=== PATIENT | female | born 1955 | race Caucasian/White ===

== ENCOUNTER 2023-06-18 18:33 | Inpatient (IN) | payer MEDICARE ==
[~2023-06-18] VITALS: Ht 154.9 cm; Wt 54.4 kg
[2023-06-18] MEDS ORDERED: IPRATROPIUM NEB FS 0.5 MG/2.5 ML AMPUL.NEB NEB ONE (19:00)
[2023-06-18] MEDS ORDERED: methylPREDNISolone SOD SUCC 125 MG/2ML VIAL IV ONE (19:00)
[2023-06-18] MEDS ORDERED: Magnesium 1GM/D5W 100ML PREMIX 200 ML IV ONE ×2 (19:00→19:15)
[2023-06-18] MEDS ORDERED: ALBUTEROL FS 2.5 MG/3 ML VIAL.NEB CONTNEB ONE (19:00)
[2023-06-18] MEDS ORDERED: methylPREDNISolone SOD SUCC 125 MG/2ML VIAL ONE (19:10)
[2023-06-18 19:15] LABS: BASOPHILS # (AUTO) 0.1 K/uL (0.0-0.2); BASOPHILS % (AUTO) 1.5 % (0.0-2.0); EOSINOPHILS # (AUTO) 0.3 K/uL (0.0-0.7); EOSINOPHILS % (AUTO) 3.9 % (0.0-6.0); HEMATOCRIT 31 % (33-45); HEMOGLOBIN 9.6 g/dL (11.5-14.8); LYMPHOCYTES # (AUTO) 0.7 K/uL (0.8-4.8); LYMPHOCYTES % (AUTO) 8.3 % (20.0-44.0); MEAN CORPUSCULAR HEMOGLOBIN 29 PG (26.0-33.0); MEAN CORPUSCULAR HGB CONC 31 g/dl (31.0-36.0); MEAN CORPUSCULAR VOLUME 93 fL (82-100); MONOCYTES # (AUTO) 0.6 K/uL (0.1-1.30); MONOCYTES % (AUTO) 7.9 % (2.0-12.0); NEUTROPHILS # (AUTO) 6.2 K/uL (1.8-8.9); NEUTROPHILS % (AUTO) 78.4 % (43.0-81.0); PLATELET COUNT (AUTO) 191 K/uL (150-450); RED BLOOD CELL COUNT(AUTO) 3.27 MIL/uL (4.0-5.2); RED CELL DISTRIBUTION WIDTH 14.6 % (11.5-15.0); WHITE BLOOD COUNT (AUTO) 7.9 K/uL (4.3-11.0)
[2023-06-18 19:26] LABS: CALCIUM, SERUM 8.7 mg/dL (8.5-10.1); CHLORIDE 98 mmol/L (98-107); CREATININE 0.6 mg/dL (0.6-1.3); GLUCOSE 112 mg/dL (74-106); POTASSIUM 4.4 mmol/L (3.5-5.1); SODIUM SERUM 139 mmol/L (136-145); UREA NITROGEN, BLOOD 16 mg/dL (7-18)
[2023-06-18 19:31] LABS: ALANINE AMINOTRANSFERASE 17 U/L (12-78); ALKALINE PHOSPHATASE 78 U/L (46-116); ASPARTATE AMINOTRANSFERASE 14 U/L (15-37); BILIRUBIN,DIRECT 0.1 mg/dL (0.0-0.2); BILIRUBIN,TOTAL 0.4 mg/dL (0.2-1.0); TOTAL PROTEIN, SERUM 6.3 g/dL (6.4-8.2)
[2023-06-18 19:33] LABS: CARBON DIOXIDE 40 mmol/L (21-32)
[2023-06-18] MEDS ORDERED: IPRATROPIUM NEB FS 0.5 MG/2.5 ML AMPUL.NEB ONE (19:37)
[2023-06-18] MEDS ORDERED: ALBUTEROL FS 2.5 MG/3 ML VIAL.NEB ONE (19:37)
[2023-06-18 20:07] VITALS: O2SAT 96
[2023-06-18] MEDS ORDERED: ONDANSETRON HCL/PF 4 MG/2 ML VIAL IVP PRN (21:00)
[2023-06-18] MEDS ORDERED: ALBUTEROL FS 2.5 MG/0.5 ML VIAL.NEB NEB PRN (21:00)
[2023-06-18] MEDS ORDERED: ACETAMINOPHEN 325 MG TABLET PO PRN (21:00)
[2023-06-18 21:17] VITALS: O2SAT 100
[2023-06-18 21:30] VITALS: BP 109/60; TEMP 98.2; O2SAT 92
[2023-06-18 21:49] LABS: ABG BASE EXCESS 9.4 mmol/L; ABG OXYGEN SATURATION 98.4 % (92.0-98.5); ABG PH 7.292 (7.350-7.450); ABG PO2 140.9 mmHg (75.0-100.0); ABG TOTAL HEMOGLOBIN 10.6 G/dL (12.0-16.0); COHb 0.1 % (0.5-1.5); MetHb 0.3 % (0.0-1.5); SITE, ABG Right Radial
[2023-06-18] MEDS: HEPARIN SODIUM, PORCINE 5000 UNITS/1 ML VIAL SQ SCH (23:34)
[2023-06-19] VITALS (12 sets, daily range): BP systolic 118–142; BP diastolic 61–89; TEMP 94–98.2; O2SAT 94–100
[2023-06-19] MEDS ORDERED: IPRATROPIUM/ALBUTEROL INHALER IH SCH
[2023-06-19] MEDS: ALBUTEROL FS 2.5 MG/3 ML VIAL.NEB NEB SCH ×4 (01:53→19:52)
[2023-06-19] MEDS: IPRATROPIUM NEB FS 0.5 MG/2.5 ML AMPUL.NEB NEB SCH ×4 (01:53→19:52)
[2023-06-19] MEDS: methylPREDNISolone SOD SUCC 40 MG/ML VIAL IV SCH ×4 (03:57→21:34)
[2023-06-19] MEDS: HYDROCODONE/APAP 5/325MG TABLET PO PRN ×3 (05:50→15:59)
[2023-06-19 07:04] LABS: HEMATOCRIT 30 % (33-45); HEMOGLOBIN 9.6 g/dL (11.5-14.8); LYMPHOCYTES # (AUTO) 0.1 K/uL (0.8-4.8); LYMPHOCYTES % (AUTO) 1.8 % (20.0-44.0); MEAN CORPUSCULAR HEMOGLOBIN 29 PG (26.0-33.0); MEAN CORPUSCULAR HGB CONC 32 g/dl (31.0-36.0); MEAN CORPUSCULAR VOLUME 92 fL (82-100); MONOCYTES % (AUTO) 0.6 % (2.0-12.0); NEUTROPHILS % (AUTO) 97.6 % (43.0-81.0); PLATELET COUNT (AUTO) 193 K/uL (150-450); RED BLOOD CELL COUNT(AUTO) 3.26 MIL/uL (4.0-5.2); RED CELL DISTRIBUTION WIDTH 14.5 % (11.5-15.0); WHITE BLOOD COUNT (AUTO) 6.2 K/uL (4.3-11.0)
[2023-06-19 07:22] LABS: ALBUMIN 2.9 g/dL (3.4-5.0); BILIRUBIN,TOTAL 0.3 mg/dL (0.2-1.0); CREATININE 0.6 mg/dL (0.6-1.3); MAGNESIUM 1.8 mg/dL (1.8-2.4); POTASSIUM 4.5 mmol/L (3.5-5.1); TOTAL PROTEIN, SERUM 6.4 g/dL (6.4-8.2)
[2023-06-19] MEDS ORDERED: MONT10TA22 PO (08:41)
[2023-06-19] MEDS ORDERED: CYAN10006 IJ (08:41)
[2023-06-19] MEDS ORDERED: LORA2TAB95 PO (08:41)
[2023-06-19] MEDS ORDERED: ZOLP10TA2 PO (08:41)
[2023-06-19] MEDS ORDERED: ALBU18HF2 IH (08:41)
[2023-06-19] MEDS ORDERED: OXYC10TA49 PO (08:41)
[2023-06-19] MEDS ORDERED: BUDE10.2 IH (08:41)
[2023-06-19] MEDS ORDERED: AMLO5TAB4 PO (08:41)
[2023-06-19] MEDS ORDERED: FLUO40CA8 PO (08:41)
[2023-06-19] MEDS: HEPARIN SODIUM, PORCINE 5000 UNITS/1 ML VIAL SQ SCH ×2 (09:11→21:36)
[2023-06-19] MEDS ORDERED: LORAZEPAM 1 MG TABLET PO PRN (11:00)
[2023-06-19] MEDS: NICOTINE PATCH (14MG) 14 MG PATCH.TD24 TD SCH (14:22)
[2023-06-19] MEDS ORDERED: K PHOS NEUTRAL 250 MG TABLET PO ONE (16:00)
[2023-06-19] MEDS: ENSURE ENLIVE CHOC 237 ML CAN PO SCH (17:00)
[2023-06-19] MEDS ORDERED: BUDESONIDE RESPULE INH 0.5 MG/2 ML AMPUL.NEB NEB SCH (19:30)
[2023-06-19] MEDS: BUDESONIDE RESPULE INH 0.5 MG/2 ML AMPUL.NEB NEB SCH (19:52)
[2023-06-19] MEDS: MONTELUKAST SODIUM (10MG) 10 MG TABLET PO SCH (21:34)
[2023-06-19] MEDS: AMLODIPINE BESYLATE 5 MG TABLET PO SCH (21:34)
[2023-06-19] MEDS: FLUOXETINE HCL 20 MG CAPSULE PO SCH (21:34)
[2023-06-19] MEDS: MORPHINE SULFATE INJ 2 MG/ML DISP.SYRIN IV PRN (21:48)
[2023-06-19] MEDS: ZOLPIDEM TARTRATE 10 MG TABLET PO PRN (23:16)
[2023-06-20] VITALS (12 sets, daily range): BP systolic 126–151; BP diastolic 73–94; TEMP 98–99; O2SAT 95–100
[2023-06-20] MEDS: ALBUTEROL FS 2.5 MG/3 ML VIAL.NEB NEB SCH ×4 (00:34→20:17)
[2023-06-20] MEDS: IPRATROPIUM NEB FS 0.5 MG/2.5 ML AMPUL.NEB NEB SCH ×4 (00:34→20:17)
[2023-06-20] MEDS: methylPREDNISolone SOD SUCC 40 MG/ML VIAL IV SCH ×2 (05:14→16:20)
[2023-06-20] MEDS: ENSURE ENLIVE CHOC 237 ML CAN PO SCH ×2 (08:00→17:00)
[2023-06-20] MEDS: BUDESONIDE RESPULE INH 0.5 MG/2 ML AMPUL.NEB NEB SCH ×2 (08:31→20:17)
[2023-06-20] MEDS: HEPARIN SODIUM, PORCINE 5000 UNITS/1 ML VIAL SQ SCH ×2 (09:35→21:23)
[2023-06-20] MEDS: NICOTINE PATCH (14MG) 14 MG PATCH.TD24 TD SCH (09:35)
[2023-06-20] MEDS: MORPHINE SULFATE INJ 2 MG/ML DISP.SYRIN IV PRN ×3 (09:36→21:21)
[2023-06-20] MEDS: FLUOXETINE HCL 20 MG CAPSULE PO SCH (21:20)
[2023-06-20] MEDS: MONTELUKAST SODIUM (10MG) 10 MG TABLET PO SCH (21:20)
[2023-06-20] MEDS: AMLODIPINE BESYLATE 5 MG TABLET PO SCH (21:21)
[2023-06-20] MEDS: ZOLPIDEM TARTRATE 10 MG TABLET PO PRN (23:44)
[2023-06-21] VITALS (12 sets, daily range): BP systolic 127–155; BP diastolic 75–99; TEMP 97.3–99; O2SAT 96–100
[2023-06-21] MEDS: IPRATROPIUM NEB FS 0.5 MG/2.5 ML AMPUL.NEB NEB SCH ×4 (01:07→20:16)
[2023-06-21] MEDS: ALBUTEROL FS 2.5 MG/3 ML VIAL.NEB NEB SCH ×4 (01:08→20:16)
[2023-06-21] MEDS: MORPHINE SULFATE INJ 2 MG/ML DISP.SYRIN IV PRN ×5 (05:51→22:09)
[2023-06-21] MEDS: BUDESONIDE RESPULE INH 0.5 MG/2 ML AMPUL.NEB NEB SCH ×2 (07:30→20:16)
[2023-06-21] MEDS: ENSURE ENLIVE CHOC 237 ML CAN PO SCH ×2 (08:00→17:00)
[2023-06-21] MEDS: methylPREDNISolone SOD SUCC 40 MG/ML VIAL IV SCH ×2 (08:53→17:30)
[2023-06-21] MEDS: NICOTINE PATCH (14MG) 14 MG PATCH.TD24 TD SCH (08:54)
[2023-06-21] MEDS: HEPARIN SODIUM, PORCINE 5000 UNITS/1 ML VIAL SQ SCH ×2 (08:56→21:53)
[2023-06-21] MEDS: FLUOXETINE HCL 20 MG CAPSULE PO SCH (22:08)
[2023-06-21] MEDS: MONTELUKAST SODIUM (10MG) 10 MG TABLET PO SCH (22:08)
[2023-06-21] MEDS: AMLODIPINE BESYLATE 5 MG TABLET PO SCH (23:12)
[2023-06-21] MEDS: ZOLPIDEM TARTRATE 10 MG TABLET PO PRN (23:13)
[2023-06-22] VITALS: BP 142/89; TEMP 97.8; O2SAT 97
[2023-06-22] MEDS: IPRATROPIUM NEB FS 0.5 MG/2.5 ML AMPUL.NEB NEB SCH ×3 (01:30→13:03)
[2023-06-22] MEDS: ALBUTEROL FS 2.5 MG/3 ML VIAL.NEB NEB SCH ×3 (01:30→13:03)
[2023-06-22] MEDS: MORPHINE SULFATE INJ 2 MG/ML DISP.SYRIN IV PRN ×2 (02:57→08:28)
[2023-06-22 04:00] VITALS: BP 141/78; TEMP 97.9; O2SAT 97
[2023-06-22] MEDS: HYDROCODONE/APAP 5/325MG TABLET PO PRN ×2 (06:26→10:56)
[2023-06-22] MEDS: BUDESONIDE RESPULE INH 0.5 MG/2 ML AMPUL.NEB NEB SCH (07:30)
[2023-06-22 07:48] VITALS: O2SAT 99
[2023-06-22 08:00] VITALS: BP 158/97; TEMP 98.2; O2SAT 98
[2023-06-22] MEDS: ENSURE ENLIVE CHOC 237 ML CAN PO SCH (08:00)
[2023-06-22] MEDS: methylPREDNISolone SOD SUCC 40 MG/ML VIAL IV SCH (08:26)
[2023-06-22] MEDS: NICOTINE PATCH (14MG) 14 MG PATCH.TD24 TD SCH (08:28)
[2023-06-22] MEDS: HEPARIN SODIUM, PORCINE 5000 UNITS/1 ML VIAL SQ SCH (08:28)
[2023-06-22 11:57] VITALS: BP 152/83; TEMP 98.6; O2SAT 97
[2023-06-22 13:03] VITALS: O2SAT 98
== END 2023-06-22 16:00 | DRG 190 ==
LOC: ER 18:48 → TELE 20:56 → MED 06-22 12:06
PROVIDERS: ADMIT Internal Medicine
DX: J44.1 Chronic obstructive pulmonary disease with (acute) exacerbation (principal); J96.21 Acute and chronic respiratory failure with hypoxia; J96.22 Acute and chronic respiratory failure with hypercapnia; E44.0 Moderate protein-calorie malnutrition; Z68.1 Body mass index [BMI] 19.9 or less, adult; D64.9 Anemia, unspecified; E88.09 Other disorders of plasma-protein metabolism, not elsewhere classified; I10 Essential (primary) hypertension; F17.200 Nicotine dependence, unspecified, uncomplicated; F17.290 Nicotine dependence, other tobacco product, uncomplicated; M19.90 Unspecified osteoarthritis, unspecified site; F41.9 Anxiety disorder, unspecified; F32.A Depression, unspecified; G89.4 Chronic pain syndrome; Z79.51 Long term (current) use of inhaled steroids; Z79.899 Other long term (current) drug therapy
CPT/HCPCS: 36415; 36600; 71045-TC; 73564-TC; 80048-TC; 80053-TC; 80076-TC; 82803-TC; 83735-TC; 84100-TC; 84484-TC; 85025-TC; 85378-TC; 87081-TC; 94799-TC; 97110-TC; 97116-TC; 97530-TC; G0378; J1644; J2270; J2920; J2930; J3475

== ENCOUNTER 2023-12-06 00:35 | Inpatient (IN) | payer MEDICARE ==
[~2023-12-06] VITALS: Ht 154.9 cm; Wt 43.5 kg
[2023-12-06] VITALS (7 sets, daily range): TEMP 98.2; O2SAT 96–100
[~2023-12-06 00:35] MED LIST: ALBU18HF2 IH; AMLO5TAB4 PO; BUDE10.2 IH; CYAN10006 IJ; FLUO40CA8 PO; LORA2TAB95 PO; MONT10TA22 PO; OXYC10TA49 PO; ZOLP10TA2 PO
[2023-12-06] MEDS: IV NS 0.9% 1,000 ML BAG IV ONE (01:30)
[2023-12-06 01:36] LABS: BASOPHILS % (AUTO) 0.2 % (0.0-2.0); EOSINOPHILS # (AUTO) 0.4 K/uL (0.0-0.7); EOSINOPHILS % (AUTO) 2.5 % (0.0-6.0); HEMATOCRIT 33 % (33-45); HEMOGLOBIN 10.2 g/dL (11.5-14.8); LYMPHOCYTES # (AUTO) 0.9 K/uL (0.8-4.8); LYMPHOCYTES % (AUTO) 6.5 % (20.0-44.0); MEAN CORPUSCULAR HEMOGLOBIN 29 PG (26.0-33.0); MEAN CORPUSCULAR HGB CONC 31 g/dl (31.0-36.0); MEAN CORPUSCULAR VOLUME 95 fL (82-100); MONOCYTES # (AUTO) 1.3 K/uL (0.1-1.30); MONOCYTES % (AUTO) 9.4 % (2.0-12.0); NEUTROPHILS # (AUTO) 11.4 K/uL (1.8-8.9); NEUTROPHILS % (AUTO) 81.4 % (43.0-81.0); PLATELET COUNT (AUTO) 261 K/uL (150-450); RED BLOOD CELL COUNT(AUTO) 3.48 MIL/uL (4.0-5.2); RED CELL DISTRIBUTION WIDTH 15.7 % (11.5-15.0)
[2023-12-06 01:45] LABS: CALCIUM, SERUM 8.4 mg/dL (8.5-10.1); CHLORIDE 102 mmol/L (98-107); CREATININE 0.9 mg/dL (0.6-1.3); GLUCOSE 134 mg/dL (74-106); POTASSIUM 5.3 mmol/L (3.5-5.1); SODIUM SERUM 143 mmol/L (136-145); UREA NITROGEN, BLOOD 20 mg/dL (7-18)
[2023-12-06 01:54] LABS: CARBON DIOXIDE 45 mmol/L (21-32)
[2023-12-06 02:01] LABS: THYROID STIMULATING HORMONE 1.141 uIU/mL (0.358-3.74)
[2023-12-06 02:02] LABS: INR 0.99 (0.91-1.10); PARTIAL THROMBOPLASTIN TIME 22.8 SEC (24.3-34.3); PROTHROMBIN TIME 10.5 SECS (9.2-11.1)
[2023-12-06 02:10] LABS: LACTIC ACID 1.5 mmol/L (0.4-2.0)
[2023-12-06] MEDS ORDERED: ASPIRIN EC 81 MG TABLET.DR PO ONE (02:36)
[2023-12-06] MEDS: ASPIRIN 81 MG TAB.CHEW PO ONE (02:39)
[2023-12-06 02:45] LABS: APPEARANCE,URINE CLEAR (CLEAR); BILIRUBIN,URINE NEGATIVE (NEGATIVE); BLOOD, URINE NEGATIVE Ery/uL (NEGATIVE); COLOR,URINE YELLOW (YELLOW); KETONES,URINE NEGATIVE (NEGATIVE); LEUKOCYTE ESTERASE ,URINE NEGATIVE (NEGATIVE); NITRITE, URINE NEGATIVE (NEGATIVE); PROTEIN,URINE 1+ mg/dl (NEGATIVE); UGLUCOSE NEGATIVE (NEGATIVE); UROBILINOGEN,URINE 0.2 EU/dL (0.2)
[2023-12-06 02:59] LABS: ALBUMIN 2.6 g/dL (3.4-5.0); BILIRUBIN,DIRECT 0.1 mg/dL (0.0-0.2); BILIRUBIN,TOTAL 0.2 mg/dL (0.2-1.0); TOTAL PROTEIN, SERUM 5.8 g/dL (6.4-8.2)
[2023-12-06 03:23] LABS: ADD URINE CULTURE NO; BACTERIA,URINE None seen /HPF (None Seen); MUCUS,URINE Few /LPF (None Seen); RBC,URINE NONE SEEN /HPF (0-2); WBC,URINE NONE SEEN /HPF (0-3)
[2023-12-06] MEDS: methylPREDNISolone SOD SUCC 125 MG/2ML VIAL IV ONE (06:45)
[2023-12-06] MEDS ORDERED: CEFTRIAXONE 1GM BAG (ER ONLY) 50 ML IV ONE (06:46)
[2023-12-06] MEDS ORDERED: IPRATROPIUM NEB FS 0.5 MG/2.5 ML AMPUL.NEB ONE (06:49)
[2023-12-06] MEDS ORDERED: ALBUTEROL FS 2.5 MG/3 ML VIAL.NEB ONE ×2 (06:49→07:06)
[2023-12-06] MEDS: CEFTRIAXONE 1 G in IV D5W 50 ML IV STA (06:50)
[2023-12-06] MEDS: IPRATROPIUM NEB FS 0.5 MG/2.5 ML AMPUL.NEB NEB ONE (07:00)
[2023-12-06] MEDS: ALBUTEROL FS 2.5 MG/3 ML VIAL.NEB CONTNEB ONE (07:00)
[2023-12-06] MEDS: AZITHROMYCIN 500 MG in IV D5W 250 ML IV STA (07:30)
[2023-12-06] MEDS ORDERED: LEVO500T90 PO (07:55)
[2023-12-06] MEDS ORDERED: DOCU100T2 PO (07:55)
[2023-12-06] MEDS ORDERED: GABA-532 PO (07:55)
[2023-12-06] MEDS ORDERED: ASPI-1420 PO (07:55)
[2023-12-06] MEDS ORDERED: CLON0.1T PO (07:55)
[2023-12-06] MEDS ORDERED: LORA-259 PO (07:55)
[2023-12-06 08:01] LABS: ABG BASE EXCESS 10.1 mmol/L; ABG OXYGEN SATURATION 96.9 % (92.0-98.5); ABG PCO2 84.6 mmHg (35.0-45.0); ABG PH 7.286 (7.350-7.450); ABG PO2 94.5 mmHg (75.0-100.0); ABG TOTAL HEMOGLOBIN 11.1 G/dL (12.0-16.0); COHb 0.3 % (0.5-1.5); MetHb 0.2 % (0.0-1.5); O2Hb 96.4 % (94.0-97.0); SITE, ABG Right Radial; VENT MODE, BG 4LNC
[2023-12-06] MEDS ORDERED: ONDANSETRON HCL/PF 4 MG/2 ML VIAL IVP PRN (10:30)
[2023-12-06] MEDS ORDERED: Z GUARD REMEDY 4 OZ OINT TP PRN (10:30)
[2023-12-06] MEDS ORDERED: MAG HYDROX/AL HYDROX/SIMETH 30 ML UDC PO PRN (10:30)
[2023-12-06] MEDS ORDERED: MAGNESIUM HYDROXIDE 30 ML UDC PO PRN (10:30)
[2023-12-06] MEDS: IPRATROPIUM NEB FS 0.5 MG/2.5 ML AMPUL.NEB NEB SCH (12:58)
[2023-12-06] MEDS: ALBUTEROL FS 2.5 MG/0.5 ML VIAL.NEB NEB SCH (12:58)
[2023-12-06] MEDS: CEFEPIME 2 GM in IV D5W 100 ML IV SCH (13:06)
[2023-12-06] MEDS: methylPREDNISolone SOD SUCC 40 MG/ML VIAL IV SCH (13:07)
[2023-12-06] MEDS: GABAPENTIN 100 MG CAPSULE PO SCH (13:07)
[2023-12-06] MEDS: ENOXAPARIN SODIUM 40 MG/0.4 ML DISP.SYRIN SQ SCH (13:07)
[2023-12-06] MEDS: ATORVASTATIN 10 MG TABLET PO SCH (13:07)
[2023-12-06] MEDS: BUDESONIDE RESPULE INH 0.5 MG/2 ML AMPUL.NEB NEB SCH ×2 (13:11→19:30)
[2023-12-06] MEDS: DOCUSATE SODIUM 100 MG CAPSULE PO SCH (17:00)
[2023-12-06] MEDS ORDERED: NALOXONE HCL 0.4 MG/ML AMPUL IV PRN (21:00)
[2023-12-06] MEDS: oxyCODONE HCL SR 10MG TAB.SR.12H PO SCH (21:05)
[2023-12-06] MEDS ORDERED: ZOLPIDEM TARTRATE 10 MG TABLET PO SCH (22:00)
[2023-12-06] MEDS: ALBUTEROL FS 2.5 MG/3 ML VIAL.NEB NEB PRN (23:57)
[2023-12-06] MEDS: IPRATROPIUM NEB FS 0.5 MG/2.5 ML AMPUL.NEB NEB PRN (23:57)
[2023-12-06] MEDS: ZOLPIDEM TARTRATE 5 MG TABLET PO PRN (23:58)
[2023-12-07 01:51] VITALS: O2SAT 96
[2023-12-07 02:03] VITALS: O2SAT 99
[2023-12-07] MEDS: ACETAMINOPHEN 325 MG TABLET PO PRN (06:19)
[2023-12-07 07:28] LABS: HEMATOCRIT 33 % (33-45); HEMOGLOBIN 10.4 g/dL (11.5-14.8); LYMPHOCYTES # (AUTO) 0.3 K/uL (0.8-4.8); LYMPHOCYTES % (AUTO) 2.2 % (20.0-44.0); MEAN CORPUSCULAR HEMOGLOBIN 30 PG (26.0-33.0); MEAN CORPUSCULAR HGB CONC 32 g/dl (31.0-36.0); MEAN CORPUSCULAR VOLUME 93 fL (82-100); MONOCYTES # (AUTO) 0.2 K/uL (0.1-1.30); MONOCYTES % (AUTO) 1.6 % (2.0-12.0); NEUTROPHILS # (AUTO) 11.8 K/uL (1.8-8.9); NEUTROPHILS % (AUTO) 96.2 % (43.0-81.0); PLATELET COUNT (AUTO) 218 K/uL (150-450); RED BLOOD CELL COUNT(AUTO) 3.54 MIL/uL (4.0-5.2); RED CELL DISTRIBUTION WIDTH 14.7 % (11.5-15.0); WHITE BLOOD COUNT (AUTO) 12.3 K/uL (4.3-11.0)
[2023-12-07 07:30] LABS: CALCIUM, SERUM 8.3 mg/dL (8.5-10.1); CREATININE 0.7 mg/dL (0.6-1.3); MAGNESIUM 1.6 mg/dL (1.8-2.4); PHOSPHORUS 2.7 mg/dL (2.5-4.9); POTASSIUM 4.6 mmol/L (3.5-5.1)
[2023-12-07 07:43] VITALS: O2SAT 97
[2023-12-07 07:44] LABS: THYROID STIMULATING HORMONE 0.215 uIU/mL (0.358-3.74)
[2023-12-07 08:03] VITALS: O2SAT 99
[2023-12-07] MEDS: ASPIRIN EC 81 MG TABLET.DR PO SCH (08:32)
[2023-12-07] MEDS: FLUOXETINE HCL 20 MG CAPSULE PO SCH (08:32)
[2023-12-07 08:33] VITALS: BP 118/87
[2023-12-07] MEDS: MONTELUKAST SODIUM (10MG) 10 MG TABLET PO SCH (08:33)
[2023-12-07] MEDS: PANTOPRAZOLE 40 MG VIAL IV SCH (08:33)
[2023-12-07] MEDS: AMLODIPINE BESYLATE 5 MG TABLET PO SCH (08:33)
[2023-12-07] MEDS: AZITHROMYCIN 500 MG in IV D5W 250 ML IV SCH (10:50)
[2023-12-07] MEDS ORDERED: ALBU8.5H8 INH (11:25)
[2023-12-07] MEDS ORDERED: METH4TAB3 PO (11:25)
[2023-12-07] MEDS ORDERED: AZIT250T PO (11:31)
[2023-12-07] MEDS: MAGNESIUM OXIDE 400 MG TABLET PO ONE (12:59)
[2023-12-07 13:59] VITALS: O2SAT 97
== END 2023-12-07 14:10 | DRG 189 ==
LOC: ER 00:44 → TRANSITION 05:48 → TELE1 08:10
PROVIDERS: ADMIT Nurse Practitioner Acute Care; ATTEND Nurse Practitioner Acute Care
DX: J96.22 Acute and chronic respiratory failure with hypercapnia (principal); I21.A1 Myocardial infarction type 2; J44.1 Chronic obstructive pulmonary disease with (acute) exacerbation; E44.0 Moderate protein-calorie malnutrition; I10 Essential (primary) hypertension; Z86.19 Personal history of other infectious and parasitic diseases; Z98.890 Other specified postprocedural states; Z79.51 Long term (current) use of inhaled steroids; Z79.899 Other long term (current) drug therapy; D72.829 Elevated white blood cell count, unspecified; M19.90 Unspecified osteoarthritis, unspecified site; F32.A Depression, unspecified; F41.9 Anxiety disorder, unspecified; G89.4 Chronic pain syndrome; E88.09 Other disorders of plasma-protein metabolism, not elsewhere classified; Z87.891 Personal history of nicotine dependence; E87.5 Hyperkalemia; Z99.81 Dependence on supplemental oxygen; Z79.82 Long term (current) use of aspirin
CPT/HCPCS: 36415; 36600; 71045-TC; 80048-TC; 80061-TC; 80076-TC; 81001; 82803-TC; 83605-TC; 83735-TC; 83880; 84100-TC; 84439-TC; 84443-TC; 84480; 84484-TC; 85025-TC; 85730-TC; 87040-TC; 87086-TC; 93307-TC; 94799-TC; 97110-TC; 97116-TC; 97530-TC; A4223; C9113; G0378; J0456; J0692; J0696; J1650; J2920; J2930; J7050; J7060

== ENCOUNTER 2024-01-14 01:26 | Inpatient (IN) | payer MEDICARE ==
[2024-01-14] VITALS (18 sets, daily range): BP systolic 134–160; BP diastolic 75–86; TEMP 98.3–98.6; O2SAT 76–100
[~2024-01-14] VITALS: Ht 154.9 cm; Wt 53.5 kg
[~2024-01-14 01:26] MED LIST changes: -ALBU18HF2 IH; +ALBU8.5H8 INH; +ASPI-1420 PO; +AZIT250T PO; +CLON0.1T PO; -CYAN10006 IJ; +DOCU100T2 PO; +GABA-532 PO; +LEVO500T90 PO; +LORA-259 PO; -LORA2TAB95 PO; +METH4TAB3 PO; +PRED10TA PO
[2024-01-14] MEDS ORDERED: methylPREDNISolone SOD SUCC 125 MG/2ML VIAL ONE (02:10)
[2024-01-14] MEDS: methylPREDNISolone SOD SUCC 125 MG/2ML VIAL IV ONE (02:10)
[2024-01-14] MEDS: ALBUTEROL FS 2.5 MG/3 ML VIAL.NEB NEB ONE (02:29)
[2024-01-14] MEDS: IPRATROPIUM NEB FS 0.5 MG/2.5 ML AMPUL.NEB NEB ONE (02:29)
[2024-01-14 02:31] LABS: BASOPHILS % (AUTO) 0.4 % (0.0-2.0); EOSINOPHILS # (AUTO) 0.1 K/uL (0.0-0.7); EOSINOPHILS % (AUTO) 1.2 % (0.0-6.0); HEMATOCRIT 27 % (33-45); HEMOGLOBIN 8.3 g/dL (11.5-14.8); LYMPHOCYTES % (AUTO) 11.1 % (20.0-44.0); MEAN CORPUSCULAR HEMOGLOBIN 31 PG (26.0-33.0); MEAN CORPUSCULAR HGB CONC 31 g/dl (31.0-36.0); MEAN CORPUSCULAR VOLUME 98 fL (82-100); MONOCYTES # (AUTO) 0.9 K/uL (0.1-1.30); MONOCYTES % (AUTO) 9.9 % (2.0-12.0); NEUTROPHILS % (AUTO) 77.4 % (43.0-81.0); PLATELET COUNT (AUTO) 186 K/uL (150-450); RED BLOOD CELL COUNT(AUTO) 2.74 MIL/uL (4.0-5.2); RED CELL DISTRIBUTION WIDTH 17.4 % (11.5-15.0)
[2024-01-14] MEDS ORDERED: ALBUTEROL FS 2.5 MG/3 ML VIAL.NEB ONE (02:32)
[2024-01-14] MEDS ORDERED: IPRATROPIUM NEB FS 0.5 MG/2.5 ML AMPUL.NEB ONE (02:32)
[2024-01-14 02:41] LABS: CALCIUM, SERUM 8.7 mg/dL (8.5-10.1); CHLORIDE 101 mmol/L (98-107); CREATININE 0.9 mg/dL (0.6-1.3); GLUCOSE 92 mg/dL (74-106); POTASSIUM 5.2 mmol/L (3.5-5.1); SODIUM SERUM 144 mmol/L (136-145); UREA NITROGEN, BLOOD 24 mg/dL (7-18)
[2024-01-14 02:48] LABS: CARBON DIOXIDE 47 mmol/L (21-32)
[2024-01-14] MEDS ORDERED: MAG HYDROX/AL HYDROX/SIMETH 30 ML UDC PO PRN (07:00)
[2024-01-14] MEDS ORDERED: ONDANSETRON HCL/PF 4 MG/2 ML VIAL IVP PRN (07:00)
[2024-01-14] MEDS: IPRATROPIUM NEB FS 0.5 MG/2.5 ML AMPUL.NEB NEB PRN (07:50)
[2024-01-14] MEDS: ALBUTEROL HALF STRENGTH 1.25 MG/3 ML VIAL.NEB NEB PRN (07:50)
[2024-01-14 08:41] LABS: CALCIUM, SERUM 8.6 mg/dL (8.5-10.1); CREATININE 0.9 mg/dL (0.6-1.3); POTASSIUM 5.2 mmol/L (3.5-5.1)
[2024-01-14] MEDS: methylPREDNISolone SOD SUCC 40 MG/ML VIAL IV SCH (09:12)
[2024-01-14] MEDS: ENOXAPARIN SODIUM 40 MG/0.4 ML DISP.SYRIN SQ SCH (09:13)
[2024-01-14] MEDS: ACETAMINOPHEN 325 MG TABLET PO PRN (09:25)
[2024-01-14] MEDS ORDERED: MELO-107 PO (10:24)
[2024-01-14] MEDS ORDERED: METO50TA16 PO (10:24)
[2024-01-14] MEDS ORDERED: PANT40TA49 PO (10:24)
[2024-01-14] MEDS ORDERED: FLUT1BLS INH (10:24)
[2024-01-14] MEDS: LEVOFLOXACIN (250MG) 250 MG TABLET PO SCH (10:31)
[2024-01-14] MEDS: IPRATROPIUM NEB FS 0.5 MG/2.5 ML AMPUL.NEB NEB SCH (11:28)
[2024-01-14] MEDS: ALBUTEROL HALF STRENGTH 1.25 MG/3 ML VIAL.NEB NEB SCH (11:29)
[2024-01-14] MEDS: MORPHINE SULFATE INJ 2 MG/ML DISP.SYRIN IV PRN (13:21)
[2024-01-14] MEDS ORDERED: NALOXONE HCL 0.4 MG/ML AMPUL IV PRN (16:30)
[2024-01-14] MEDS: oxyCODONE HCL SR 10MG TAB.SR.12H PO SCH (16:38)
[2024-01-14] MEDS: ZOLPIDEM TARTRATE 10 MG TABLET PO PRN (21:25)
[2024-01-15] VITALS (12 sets, daily range): BP systolic 115–149; BP diastolic 66–85; TEMP 97.5–98.6; O2SAT 95–100
[2024-01-15 06:38] LABS: BASOPHILS % (AUTO) 0.1 % (0.0-2.0); HEMATOCRIT 27 % (33-45); HEMOGLOBIN 8.8 g/dL (11.5-14.8); LYMPHOCYTES # (AUTO) 0.3 K/uL (0.8-4.8); LYMPHOCYTES % (AUTO) 3.1 % (20.0-44.0); MEAN CORPUSCULAR HEMOGLOBIN 31 PG (26.0-33.0); MEAN CORPUSCULAR HGB CONC 33 g/dl (31.0-36.0); MEAN CORPUSCULAR VOLUME 95 fL (82-100); MONOCYTES # (AUTO) 0.3 K/uL (0.1-1.30); MONOCYTES % (AUTO) 3.4 % (2.0-12.0); NEUTROPHILS # (AUTO) 8.8 K/uL (1.8-8.9); NEUTROPHILS % (AUTO) 93.4 % (43.0-81.0); PLATELET COUNT (AUTO) 194 K/uL (150-450); RED BLOOD CELL COUNT(AUTO) 2.83 MIL/uL (4.0-5.2); RED CELL DISTRIBUTION WIDTH 16.1 % (11.5-15.0); WHITE BLOOD COUNT (AUTO) 9.4 K/uL (4.3-11.0)
[2024-01-15 06:58] LABS: CREATININE 0.5 mg/dL (0.6-1.3); MAGNESIUM 1.7 mg/dL (1.8-2.4); PHOSPHORUS 2.9 mg/dL (2.5-4.9); POTASSIUM 4.1 mmol/L (3.5-5.1)
[2024-01-15] MEDS: MAGNESIUM OXIDE 400 MG TABLET PO ONE (11:11)
[2024-01-16] VITALS (10 sets, daily range): BP systolic 141–190; BP diastolic 81–104; TEMP 97.7–97.9; O2SAT 96–100
[2024-01-16] MEDS ORDERED: LEVO250T59 PO (11:53)
[2024-01-16] MEDS ORDERED: PRED20TA PO (11:53)
[2024-01-16] MEDS: hydrALAZINE HCL 25 MG TABLET PO ONE (15:26)
[2024-01-16] MEDS ORDERED: hydrALAZINE HCL 25 MG TABLET PO ONE (15:30)
== END 2024-01-16 16:00 | disposition home health service (06) | DRG 190 ==
LOC: ER 01:34 → TELE 05:02
PROVIDERS: ADMIT Internal Medicine; ATTEND Internal Medicine
DX: J44.1 Chronic obstructive pulmonary disease with (acute) exacerbation (principal); J96.21 Acute and chronic respiratory failure with hypoxia; J96.22 Acute and chronic respiratory failure with hypercapnia; J93.83 Other pneumothorax; R64 Cachexia; Z20.822 Contact with and (suspected) exposure to COVID-19; Z66 Do not resuscitate; Z79.51 Long term (current) use of inhaled steroids; Z99.81 Dependence on supplemental oxygen; Z79.899 Other long term (current) drug therapy; I10 Essential (primary) hypertension; F32.9 Major depressive disorder, single episode, unspecified; Z86.14 Personal history of Methicillin resistant Staphylococcus aureus infection; Z98.890 Other specified postprocedural states; Z79.82 Long term (current) use of aspirin; R91.1 Solitary pulmonary nodule; G89.4 Chronic pain syndrome; F39 Unspecified mood [affective] disorder; D64.9 Anemia, unspecified; F17.200 Nicotine dependence, unspecified, uncomplicated; J43.9 Emphysema, unspecified
CPT/HCPCS: 36415; 36600; 71045-TC; 71250-TC; 80048-TC; 80061-TC; 82803-TC; 83735-TC; 84100-TC; 84484-TC; 85025-TC; 87040-TC; 87081-TC; 94762-TC; 94799-TC; 97112-TC; 97116-TC; 97530-TC; G0378; J1650; J2270; J2919